=== PATIENT | female | born 1980 | race African-American/Black ===

== ENCOUNTER 2017-01-28 08:32 | Emergency (ER) | payer SELFPAY ==
[2017-01-28 08:38] VITALS: BP 129/82
[2017-01-28] MEDS ORDERED: AMOXICILLIN TRIHYDRATE 500 MG CAPSULE PO ONE (08:57)
--- NOTE | 2017-01-28 08:59 | ER Document Report ---
ED Headache - General Chief Complaint: Headache >24 hrs old Stated Complaint: HEADACHE Time Seen by Provider: 01/28/17 08:55 Mode of Arrival: Ambulatory Information source: Patient Notes: Patient is a 36-year-old female who presents to the ER today for 2 weeks of headache behind the right eye and in the forehead, generalized ill feeling, malaise, sweats and chills and productive cough, worse at night. She denies any history of asthma, she denies shortness of breath, wheezing, nausea, vomiting, diarrhea, abdominal pain, chest pain. She denies any sore throat or runny nose. She does have a history of migraines and takes Excedrin which usually works but states that this headache "does not feel like a migraine." She states that the pain in her head feels more like a "pressure," and is located mostly in her face. TRAVEL OUTSIDE OF THE [place] IN LAST 30 DAYS: No - Related Data Allergies/Adverse Reactions: No Known Allergies Allergy (Verified 01/28/17 08:35) Past Medical History - General Information source: Patient - Social History Smoking Status: Current Some Day Smoker Family History: Reviewed & Not Pertinent, DM Patient has suicidal ideation: No Patient has homicidal ideation: No - Past Medical History Cardiac Medical History: Reports: Hx Pulmonary Embolism Denies: Hx Heart Attack, Hx Hypertension Pulmonary Medical History: Denies: Hx Asthma, Hx Tuberculosis Neurological Medical History: Reports: Hx Migraine. Denies: Hx Cerebrovascular Accident, Hx Seizures Renal/ Medical History: Denies: Hx Peritoneal Dialysis GI Medical History: Reports: Hx Gastroesophageal Reflux Disease - w , Hx Irritable Bowel. Denies: Hx Hepatitis, Hx Hiatal Hernia, Hx Ulcer Infectious Medical History: Denies: Hx Hepatitis Past Surgical History: Reports: Hx Cholecystectomy, Hx Tubal Ligation. Denies: Hx Hysterectomy, Hx Mastectomy - TUBAL LIGATION, Hx Open Heart Surgery, Hx Pacemaker - Immunizations Hx Diphtheria, Pertussis, Tetanus Vaccination: No Review of Systems - Review of Systems Constitutional: See HPI EENT: See HPI Cardiovascular: No symptoms reported Respiratory: See HPI Gastrointestinal: No symptoms reported Genitourinary: No symptoms reported Female Genitourinary: No symptoms reported Musculoskeletal: No symptoms reported Skin: No symptoms reported Hematologic/Lymphatic: No symptoms reported Neurological/Psychological: See HPI Physical Exam - Vital signs Vitals: Temp Pulse Resp BP Pulse Ox 98.0 F 84 14 129/82 H 98 01/28/17 08:36 01/28/17 08:36 01/28/17 08:36 01/28/17 08:36 01/28/17 08:36 - Notes Notes: PHYSICAL EXAMINATION: GENERAL: mildly Ill-appearing, but in no acute distress. HEAD: Atraumatic, normocephalic. EYES: Pupils equal round and reactive to light, extraocular movements intact, sclera anicteric, conjunctiva are normal. ENT: ear canals without erythema or foreign body, TMs pearly morgan with good bony landmarks, nares patent, oropharynx clear without exudates. Moist mucous membranes. Maxillary and frontal sinuses tender to palpation, NECK: Normal range of motion, supple without lymphadenopathy LUNGS: CTAB and equal. No wheezes rales or rhonchi. HEART: Regular rate and rhythm without murmurs EXTREMITIES: Normal range of motion, no pitting edema. No cyanosis. NEUROLOGICAL: Cranial nerves grossly intact. Normal sensory/motor exams. PSYCH: Normal mood, normal affect. SKIN: Warm, Dry, normal turgor, no rashes or lesions noted Course - Vital Signs Vital signs: Temp Pulse Resp BP Pulse Ox 98.0 F 84 12 129/82 H 98 01/28/17 08:36 01/28/17 08:36 01/28/17 08:54 01/28/17 08:36 01/28/17 08:36 Discharge - Discharge Clinical Impression: Sinusitis Qualifiers: Sinusitis location: unspecified location Chronicity: acute Recurrence: non- recurrent Qualified Code(s): J01.90 - Acute sinusitis, unspecified Headache Qualifiers: Headache type: unspecified Headache chronicity pattern: unspecified pattern Intractability: not intractable Qualified Code(s): R51 - Headache Condition: Stable Disposition: HOME, SELF-CARE Additional Instructions: Return immediately for any new or worsening symptoms. Follow up with primary care provider, call tomorrow to make followup appointment. Prescriptions: Amoxicillin 500 mg PO BID #20 capsule Ibuprofen [Motrin 800 mg Tablet] 800 mg PO Q8H PRN #30 tab PRN Reason: Referrals: JOSELITO NUNEZ MD [Primary Care Provider] - Follow up as needed
== END 2017-01-28 09:13 | disposition home or self-care (01) ==
LOC: ER 08:32
DX: J01.90 Acute sinusitis, unspecified (principal); R51 Headache; R53.81 Other malaise; R61 Generalized hyperhidrosis; R68.83 Chills (without fever); R05 Cough; F17.200 Nicotine dependence, unspecified, uncomplicated
CPT/HCPCS: 99283

== ENCOUNTER → 2017-03-27 | Outpatient (CLI) | payer OTHER ==
--- NOTE | 2017-03-27 14:00 | XCELERA REPORT ---
[address] [address] Lower Extremity Venous Evaluation Name: ANA SNOW Age: 36 yrs Gender: Female : 1980 Patient Status: Outpatient Patient Location: Study Date: 03/27/2017 10:06 AM Procedure: Color flow and duplex imaging of the veins of the left lower extremity as well as the right Common Femoral vein. Reason For Study: E M79.605 Ordering Physician: MORIAH BLANCO Performed By: Lcai David Right Sided Venous Evaluation The right common femoral vein is fully compressible. Spontaneous and phasic flow is present in the right common femoral vein. Left Sided Venous Evaluation Normal vessel filling wall to wall, compression and augmentation as well as Colour flow down to the infrageniculate veins. Interpretation Summary No duplex evidence of DVT or obstruction in the left lower extremity nor in the right Common Femoral vein. : MORIAH BLANCO > Chavo Granados
== END ==
LOC: SP 09:56
PROVIDERS: ATTEND Family Medicine
DX: M79.605 Pain in left leg (principal)
CPT/HCPCS: 93971

== ENCOUNTER 2017-04-05 22:05 | Emergency (ER) | payer OTHER ==
[2017-04-05 23:14] LABS: ABSOLUTE BASOPHILS # (AUTO) 0.1 10^3/uL (0.0-0.2); ABSOLUTE EOSINOPHILS # (AUTO) 0.5 10^3/uL (0.0-0.6); ABSOLUTE MONOCYTES (AUTO) 0.4 10^3/uL (0.1-1.4); ABSOLUTE NEUT (AUTO) 3.9 10^3/uL (1.7-8.2); EOSINOPHILS % (AUTO) 5.1 % (0-6); HEMATOCRIT 35.1 % (36.0-47.0); HEMOGLOBIN 11.9 g/dL (12.0-15.5); HGB HCT DIFFERENCE 0.6; LYMPHOCYTES % (AUTO) 45.1 % (13-45); MEAN CORPUSCULAR HEMOGLOBIN 29.5 pg (27.0-33.4); MEAN CORPUSCULAR VOLUME 87 fl (80-97); MONOCYTES % (AUTO) 4.7 % (3-13); RED BLOOD COUNT 4.05 10^6/uL (3.72-5.28); RED CELL DISTRIBUTION WIDTH 15.3 % (11.5-14.0); SEGMENTED NEUTROPHILS % (AUTO) 44.1 % (42-78); WHITE BLOOD COUNT 8.9 10^3/uL (4.0-10.5)
[2017-04-05 23:26] LABS: ALANINE AMINOTRANSFERASE 33 U/L (9-52); ALKALINE PHOSPHATASE 43 U/L (38-126); ANION GAP 10 (5-19); ASPARTATE AMINO TRANSFERASE 20 U/L (14-36); BILIRUBIN,DIRECT 0.3 mg/dL (0.0-0.4); BILIRUBIN,TOTAL 0.4 mg/dL (0.2-1.3); BLOOD UREA NITROGEN 13 mg/dL (7-20); CALCIUM 9.4 mg/dL (8.4-10.2); CARBON DIOXIDE 25 mmol/L (22-30); CHLORIDE 107 mmol/L (98-107); CREATINE KINASE 119 U/L (30-135); CREATININE RESULT 0.78 mg/dL (0.52-1.25); GLUCOSE 108 mg/dL (75-110); POTASSIUM 4.5 mmol/L (3.6-5.0); SODIUM 141.6 mmol/L (137-145); TOTAL PROTEIN 7.2 g/dL (6.3-8.2)
--- NOTE | 2017-04-05 23:33 | RADIOLOGY REPORT (SQ) ---
EXAM DESCRIPTION: CHEST PA/LAT COMPLETED DATE/TIME: 04/05/2017 11:25 pm REASON FOR STUDY: chest pain, hx PE COMPARISON: 12/01/2015 EXAM PARAMETERS: NUMBER OF VIEWS: two views TECHNIQUE: Digital Frontal and Lateral radiographic views of the chest acquired. RADIATION DOSE: NA LIMITATIONS: none FINDINGS: LUNGS AND PLEURA: No opacities, masses or pneumothorax. No pleural effusion. MEDIASTINUM AND HILAR STRUCTURES: No masses or contour abnormalities. HEART AND VASCULAR STRUCTURES: Heart normal size. No evidence for failure. BONES: No acute findings. HARDWARE: Status post cholecystectomy. OTHER: No other significant finding. IMPRESSION: NO SIGNIFICANT RADIOGRAPHIC FINDING IN THE CHEST. TECHNICAL DOCUMENTATION: JOB ID: [id number] [employer]- All Rights Reserved
[2017-04-05 23:41] LABS: CREATINE KINASE MB < 0.22 ng/mL (<4.55); TROPONIN I < 0.012 ng/mL
--- NOTE | 2017-04-05 23:55 | ER Document Report ---
ED Cardiac - General Chief Complaint: Chest Pain Stated Complaint: CHEST PAIN Time Seen by Provider: 04/05/17 23:38 Notes: Patient is a 36 year old female that comes to the ED for chief complaint of chest pain in the left side of her chest that started at at about 7 pm today. She reports it is constant, worse with a deep breath. She denies specifically feeling shortness of breath. She states that for the past 3 weeks she has had swelling in her left leg that has not resolved, she did have a Doppler ultrasound on a by primary care provider which was negative but she also has a history of PE in the past that she used to take a blood thinner for her. She does not smoke, she denies oral contraceptive, she denies recent travel or surgery. She denies injury, pain with movement, cough, fever, nausea/vomiting, abdominal pain, flank pain. TRAVEL OUTSIDE OF THE [place] IN LAST 30 DAYS: No - Related Data Allergies/Adverse Reactions: No Known Allergies Allergy (Verified 04/05/17 22:20) Past Medical History - General Information source: Patient - Social History Smoking Status: Never Smoker Frequency of alcohol use: None Drug Abuse: None Lives with: Family Family History: Reviewed & Not Pertinent, DM - Past Medical History Cardiac Medical History: Reports: Hx Pulmonary Embolism Denies: Hx Heart Attack, Hx Hypertension Pulmonary Medical History: Denies: Hx Asthma, Hx Tuberculosis Neurological Medical History: Reports: Hx Migraine. Denies: Hx Cerebrovascular Accident, Hx Seizures Renal/ Medical History: Denies: Hx Peritoneal Dialysis GI Medical History: Reports: Hx Gastroesophageal Reflux Disease - w , Hx Irritable Bowel. Denies: Hx Hepatitis, Hx Hiatal Hernia, Hx Ulcer Infectious Medical History: Denies: Hx Hepatitis Past Surgical History: Reports: Hx Cholecystectomy, Hx Tubal Ligation. Denies: Hx Hysterectomy, Hx Mastectomy - TUBAL LIGATION, Hx Open Heart Surgery, Hx Pacemaker - Immunizations Hx Diphtheria, Pertussis, Tetanus Vaccination: No Review of Systems - Review of Systems Constitutional: No symptoms reported EENT: No symptoms reported Cardiovascular: See HPI Respiratory: See HPI Gastrointestinal: No symptoms reported Genitourinary: No symptoms reported Female Genitourinary: No symptoms reported Musculoskeletal: No symptoms reported Skin: No symptoms reported Hematologic/Lymphatic: No symptoms reported Neurological/Psychological: No symptoms reported Physical Exam - Vital signs Vitals: Temp Pulse Resp BP Pulse Ox 98.2 F 79 16 127/81 H 100 04/05/17 22:24 04/05/17 22:24 04/05/17 22:24 04/05/17 22:24 04/05/17 22:24 Interpretation: Normal - General General appearance: Appears well, Alert In distress: None - HEENT Head: Normocephalic, Atraumatic Eyes: Normal Pupils: PERRL - Respiratory Respiratory status: No respiratory distress Chest status: Tender - Tender over the anterior chest wall at about the third and fourth rib spaces bilaterally, mild, no crepitus, erythema, swelling, deformity Breath sounds: Normal. No: Decreased air movement, Wheezing Chest palpation: Normal - Cardiovascular Rhythm: Regular. No: Tachycardia Heart sounds: Normal auscultation, S1 appreciated, S2 appreciated Murmur: No - Abdominal Inspection: Normal Distension: No distension Bowel sounds: Normal Tenderness: Nontender Organomegaly: No organomegaly - Back Back: Normal, Nontender - Extremities General upper extremity: Normal inspection, Nontender, Normal color, Normal ROM , Normal temperature General lower extremity: Normal inspection, Nontender, Normal color, Normal ROM , Normal temperature, Normal weight bearing. No: Villa's sign - Neurological Neuro grossly intact: Yes Cognition: Normal Orientation: AAOx4 Amanda Coma Scale Eye Opening: Spontaneous Jasper Coma Scale Verbal: Oriented Amanda Coma Scale Motor: Obeys Commands Jasper Coma Scale Total: 15 Speech: Normal Motor strength normal: LUE, RUE, LLE, RLE Sensory: Normal - Psychological Associated symptoms: Normal affect, Normal mood - Skin Skin Temperature: Warm Skin Moisture: Dry Skin Color: Normal Course - Re-evaluation Re-evalutation: CBC, chemistry, cardiac enzymes, EKG, chest x-ray all unremarkable. D-dimer is nonspecific but not elevated. Patient does have some lower extremity swelling in her left leg compared to the right which is subtle but definitely present. Patient has pain with palpation over the chest wall on both sides of the anterior chest wall which is mild but specific and reproducible. Discussed with patient. She is declining any medications at this time including aspirin. I discussed workup, because of negative Doppler, not elevated d-dimer, no tachycardia, no shortness of breath, chest wall pain on examination, and patient no longer being on oral contraceptive like she was when she had the previous pulmonary embolism I did offer to not perform the CAT scan, to symptomatically treat and have follow-up/return precautions. After discussion patient requested CAT scan to be performed, states she cannot rest without it and she came specifically for the CAT scan. After a discussion this was performed because of left lower extremity swelling, chest pain, and history of pulmonary embolism. CAT scan shows no acute abnormality. I provided the patient with a copy of the report, she is very satisfied with this. Patient declines any treatment/ management for her chest wall symptoms, she states she actually feels much improved now compared to when her symptoms started, she will use over-the- counter and supportive therapies at home. I discussed follow-up and return precautions, patient states understanding and agreement. - Vital Signs Vital signs: Temp Pulse Resp BP Pulse Ox 98.2 F 79 14 133/98 H 100 04/05/17 22:24 04/05/17 22:24 04/06/17 01:00 04/05/17 23:46 04/06/17 01:00 - Laboratory Result Diagrams: 04/05/17 22:55 04/05/17 22:55 Laboratory results interpreted by me: 04/05/17 22:55 Hgb 11.9 L Hct 35.1 L RDW 15.3 H Lymphocytes % 45.1 H Discharge - Discharge Clinical Impression: Chest wall pain Chest pain Qualifiers: Chest pain type: unspecified Qualified Code(s): R07.9 - Chest pain, unspecified Condition: Stable Disposition: HOME, SELF-CARE Additional Instructions: Your workup does not indicate any concerning abnormality. Symptoms are most likely related to her chest wall, I recommend placing heat on the area, avoid lifting/twisting, take [id number] anti-inflammatory. Follow-up with your primary care provider. Return to the emergency department for any concerning or worsening symptoms including severe pain, difficulty breathing, or any other concerning symptoms.
[2017-04-06 00:58] LABS: APPEARANCE,URINE CLEAR; BILIRUBIN,URINE NEGATIVE (NEGATIVE); GLUCOSE, URINE NEGATIVE (NEGATIVE); KETONES,URINE NEGATIVE (NEGATIVE); LEUKOCYTE ESTERASE,URINE NEGATIVE (NEGATIVE); NITRITE,URINE NEGATIVE (NEGATIVE); PROTEIN,URINE NEGATIVE (NEGATIVE); URINE SPECIFIC GRAVITY 1.034; UROBILINOGEN,URINE NEGATIVE mg/dL (<2.0)
--- NOTE | 2017-04-06 01:15 | RADIOLOGY REPORT (SQ) ---
EXAM: CT ANGIOGRAM OF THE CHEST USING INTRAVENOUS ADMINISTRATION OF NONIONIC IODINATED CONTRAST MATERIAL. CLINICAL INDICATION: Acute chest pain. Left leg swelling. History of remote pulmonary embolism. COMPARISON: None. TECHNIQUE: Using helical technique, thin section axial images were performed through the chest after the uncomplicated intravenous administration of nonionic iodinated contrast material. Axially acquired data was then transferred to a dedicated CT workstation to facilitate parasagittal, coronal and volumetric 3-D reconstructions. Advertising Space Clerk volumetric 3-D reconstructions for this examination were permanently stored on the PACS system. Creatinine is 0.78. BUN 13. FINDINGS: Right vessels the chest are normal. No pulmonary embolism. No suspicious hilar or mediastinal lymphadenopathy. Cardiac size and contour is normal. Probable bibasilar atelectasis. Lungs are otherwise clear. No pleural effusions. Bones are normal. IMPRESSION: No pulmonary embolism.
[2017-04-06 01:48] VITALS: BP 133/98
[2017-04-06] MEDS ORDERED: ONDANSETRON HCL INJ/PF 4 MG/2 ML SDV IV ONE (01:58)
--- NOTE | 2017-04-07 06:24 | EKG REPORT ---
SEVERITY:- NORMAL ECG - SINUS RHYTHM : Confirmed by: Sharon Khalil MD 07-Apr-2017 06:23:23
== END 2017-04-06 02:16 | disposition home or self-care (01) ==
LOC: ER 22:05
DX: R07.9 Chest pain, unspecified (principal); R07.89 Other chest pain
CPT/HCPCS: 93005; 99285; 96374; 36415; 82553; 82550; 85025; 81025; 80053; 81001; 84484; 85379; 71020; 71275; 93010; J2405

== ENCOUNTER 2017-08-28 08:02 | Emergency (ER) | payer OTHER ==
--- NOTE | 2017-08-28 09:31 | ER Document Report ---
ED General - General Chief Complaint: Leg Pain Stated Complaint: LEG PAIN/NUMBNESS Time Seen by Provider: 08/28/17 08:47 Mode of Arrival: Ambulatory Information source: Patient TRAVEL OUTSIDE OF THE [place] IN LAST 30 DAYS: No - HPI Patient complains to provider of: left leg pain Onset: Other - on and off for one year Quality of pain: Sharp Severity: Mild Pain Level: 2 Associated symptoms: None - Months Similar symptoms previously: Yes Recently seen / treated by doctor: Yes Notes: Patient states that she has pain in her left hip and groin area. She states the pain radiates down her thigh and into her inner calf area. She denies any trauma states that this discomfort started approximately 1 year ago. She states that she gets left lower extremity swelling at least 3 times a week which usually worsens throughout the day. The pain does not wake her up from sleep however when she wakes up in the morning she does have some discomfort. She is an junior assistant manager to a chiropractor. Had x-rays of her hip which she states works were negative as well as an ultrasound 3 months ago which was also negative. Patient denies any low back pain. - Related Data Allergies/Adverse Reactions: No Known Allergies Allergy (Verified 08/28/17 08:04) Past Medical History - General Information source: Patient, Relative - Social History Smoking Status: Never Smoker Cigarette use (# per day): No Chew tobacco use (# tins/day): No Smoking Education Provided: No Frequency of alcohol use: Occasional Drug Abuse: None Lives with: Family Family History: Reviewed & Not Pertinent, DM Patient has suicidal ideation: No Patient has homicidal ideation: No - Past Medical History Cardiac Medical History: Reports: Hx Pulmonary Embolism Denies: Hx Heart Attack, Hx Hypertension Pulmonary Medical History: Denies: Hx Asthma, Hx Tuberculosis Neurological Medical History: Reports: Hx Migraine. Denies: Hx Cerebrovascular Accident, Hx Seizures Endocrine Medical History: Reports: None Renal/ Medical History: Reports: None. Denies: Hx Peritoneal Dialysis Malignancy Medical History: Reports: None GI Medical History: Reports: Hx Gastroesophageal Reflux Disease - w , Hx Irritable Bowel. Denies: Hx Hepatitis, Hx Hiatal Hernia, Hx Ulcer Psychiatric Medical History: Reports: None Traumatic Medical History: Reports: None Infectious Medical History: Reports: None. Denies: Hx Hepatitis Past Surgical History: Reports: Hx Cholecystectomy, Hx Tonsillectomy, Hx Tubal Ligation. Denies: Hx Hysterectomy, Hx Mastectomy - TUBAL LIGATION, Hx Open Heart Surgery, Hx Pacemaker - Immunizations Hx Diphtheria, Pertussis, Tetanus Vaccination: No Review of Systems - Review of Systems Constitutional: No symptoms reported EENT: No symptoms reported Cardiovascular: No symptoms reported Respiratory: No symptoms reported Gastrointestinal: No symptoms reported Genitourinary: No symptoms reported Female Genitourinary: No symptoms reported Musculoskeletal: See HPI, Joint pain, Leg swelling - In the past but none today.. denies: Back pain, Joint swelling, Muscle pain, Muscle stiffness, Neck pain, Deformity, Ankle swelling Skin: No symptoms reported Hematologic/Lymphatic: No symptoms reported Neurological/Psychological: No symptoms reported Physical Exam - Vital signs Vitals: Temp Pulse Resp BP Pulse Ox 98.6 F 79 19 126/77 H 98 08/28/17 08:06 08/28/17 08:06 08/28/17 08:06 08/28/17 08:06 08/28/17 08:06 - Notes Notes: PHYSICAL EXAMINATION: GENERAL: Well-appearing, well-nourished and in no acute distress. HEAD: Atraumatic, normocephalic. EYES: Pupils equal round and reactive to light, extraocular movements intact, conjunctiva are normal. ENT: Nares patent, oropharynx clear without exudates. Moist mucous membranes. NECK: Normal range of motion, supple without lymphadenopathy LUNGS: Breath sounds clear to auscultation bilaterally and equal. No wheezes rales or rhonchi. HEART: Regular rate and rhythm without murmurs ABDOMEN: Soft, nontender, nondistended abdomen. No guarding, no rebound. No masses appreciated. Female : deferred Musculoskeletal: Patient has no low back pain with palpation. She has full range of motion both passive and active with mild left hip pain. No swelling of her left lower extremity. Patient's left lower extremity is neurovascularly intact. There is no ankle or knee deformity or tenderness. NEUROLOGICAL: Cranial nerves grossly intact. Normal speech, normal gait. Normal sensory, motor exams PSYCH: Normal mood, normal affect. SKIN: Warm, Dry, normal turgor, no rashes or lesions noted. Course - Re-evaluation Re-evalutation: 08/28/17 09:31 Discussed with the patient that I would repeat her ultrasound just to make sure she does not have a DVT. I then told her that x-rays since they were already done would not be of value. I did state to have her follow-up the primary medical doctor to possibly have an MRI of her left hip to see what is going on as this pain has been present intermittently for 1 year. 08/28/17 12:45 communications tower technician Fatou stated DVT negative. 08/28/17 12:46 - Vital Signs Vital signs: Temp Pulse Resp BP Pulse Ox 97.9 F 74 16 123/81 99 08/28/17 13:31 08/28/17 13:31 08/28/17 13:31 08/28/17 13:31 08/28/17 13:31 Discharge - Discharge Clinical Impression: Leg pain Condition: Stable Disposition: HOME, SELF-CARE Instructions: Leg Pain Nonspecific ([facility]) Additional Instructions: Follow up with your physician tomorrow for further care or return to the ED IMMEDIATELY if symptoms worsen or new concerns occur. If you cannot afford to follow up with your primary care physician a list of low cost clinics have been provided at the end of your discharge papers as well. Referrals: STACIE BLANCO MD [Primary Care Provider] - Follow up in 3-5 days
--- NOTE | 2017-08-28 12:42 | RADIOLOGY REPORT (SQ) ---
EXAM DESCRIPTION: VENOUS UNILATERAL LOWER COMPLETED DATE/TIME: 08/28/2017 12:34 pm REASON FOR STUDY: left lower extremity pain/swelling COMPARISON: None. TECHNIQUE: Dynamic and static ambrocio scale and color images acquired of the left leg venous system. Se lected spectral images acquired with additional compression and augmentation maneuvers. The contralat eral common femoral vein and saphenofemoral junction were also imaged. Images stored on PACS. LIMITATIONS: None. FINDINGS: COMMON FEMORAL: Normal phasicity, compression and augmentation. No visualized echogenic ma terial on ambrocio scale. No defects on color images. FEMORAL: Normal compression and augmentation. No visualized echogenic material on ambrocio scale. No defe cts on color images. POPLITEAL: Normal compression, augmentation. No visualized echogenic material on ambrocio scale. No defec ts on color images. CALF VESSELS: Normal compression, augmentation. No visualized echogenic material on ambrocio scale. No de fects on color images. GSV and SSV: Normal compression, augmentation. No visualized echogenic material on ambrocio scale. No def ects on color images. ANY DEEP VENOUS INSUFFICIENCY: Not evaluated. ANY EVIDENCE OF POPLITEAL CYST: No. OTHER: No other significant finding. CONTRALATERAL COMMON FEMORAL VEIN AND SAPHENOFEMORAL JUNCTION: Normal phasicity, compression and augmentation. No visualized echogenic material on ambrocio scale. No de fects on color images. IMPRESSION: NO EVIDENCE DVT OR SVT IN THE LEFT LEG. TECHNICAL DOCUMENTATION: JOB ID: [id number] [employer]- All Rights Reserved Reading location - IP/workstation name: [email or web address]
[2017-08-28 13:33] VITALS: BP 123/81
== END 2017-08-28 13:33 | disposition home or self-care (01) ==
LOC: ER 08:02
DX: M79.605 Pain in left leg (principal); M79.89 Other specified soft tissue disorders; Z86.711 Personal history of pulmonary embolism; Z90.49 Acquired absence of other specified parts of digestive tract; Z98.51 Tubal ligation status
CPT/HCPCS: 93971; 99283

== ENCOUNTER 2017-10-15 10:15 | Emergency (ER) | payer OTHER ==
[2017-10-15 10:30] VITALS: BP 124/82
--- NOTE | 2017-10-15 10:48 | ER Document Report ---
ED Extremity Problem, Lower - General Chief Complaint: Leg Pain Stated Complaint: LEG PAIN Time Seen by Provider: 10/15/17 10:34 Mode of Arrival: Ambulatory Information source: Patient Notes: 36-year-old female presented ED for complaint of leg pain that is getting worse. She states she has had the leg pain for over a year. She states she has had clots in her legs in the past but has had a recent venous Doppler that was negative. She states she thinks she might of turned around the other day but is able to bear weight and walks with a even steady gait. She denies any shortness of breath or swelling to the legs. TRAVEL OUTSIDE OF THE [place] IN LAST 30 DAYS: No - HPI Patient complains to provider of: Pain. No: Injury, Swelling Location: Leg Occurred: Other - Over a year Quality of pain: Achy, Cramping Severity: Moderate Pain Level: 4 Context: Other - States she might have slipped Recent injury: No Associated symptoms: Painful ambulation Exacerbated by: Walking Relieved by: Nothing - Related Data Allergies/Adverse Reactions: No Known Allergies Allergy (Verified 10/15/17 10:24) Past Medical History - General Information source: Patient - Social History Smoking Status: Never Smoker Cigarette use (# per day): No Chew tobacco use (# tins/day): No Smoking Education Provided: No Frequency of alcohol use: Occasional Drug Abuse: None Occupation: Chiropractor's office Lives with: Alone - kids Family History: DM. denies: Arthritis, CAD, COPD, CVA, Hyperlipidemia, Hypertension, Malignancy, Thyroid Disfunction Patient has suicidal ideation: No Patient has homicidal ideation: No - Past Medical History Cardiac Medical History: Reports: Hx DVT, Hx Pulmonary Embolism Pulmonary Medical History: Reports: None EENT Medical History: Reports: None Neurological Medical History: Reports: Hx Migraine Endocrine Medical History: Reports: None Renal/ Medical History: Reports: None Malignancy Medical History: Reports: None GI Medical History: Reports: Hx Gastroesophageal Reflux Disease - w , Hx Irritable Bowel Musculoskeltal Medical History: Reports Other - Left leg pain Skin Medical History: Reports None Psychiatric Medical History: Reports: None Traumatic Medical History: Reports: None Infectious Medical History: Reports: None Past Surgical History: Reports: Hx Cholecystectomy, Hx Tonsillectomy, Hx Tubal LigationComment Only: Hx Mastectomy - TUBAL LIGATION - Immunizations Hx Diphtheria, Pertussis, Tetanus Vaccination: No Review of Systems - Review of Systems Constitutional: No symptoms reported EENT: No symptoms reported Cardiovascular: No symptoms reported Respiratory: No symptoms reported Gastrointestinal: No symptoms reported Genitourinary: No symptoms reported Female Genitourinary: No symptoms reported Musculoskeletal: Other - Left leg pain Skin: No symptoms reported Hematologic/Lymphatic: No symptoms reported Neurological/Psychological: No symptoms reported -: Yes All other systems reviewed and negative Physical Exam - Vital signs Vitals: Temp Pulse Resp BP Pulse Ox 98.0 F 87 15 124/82 96 10/15/17 10:10/15/17 10:10/15/17 10:10/15/17 10:10/15/17 10:26 Interpretation: Normal - General General appearance: Appears well, Alert - HEENT Head: Normocephalic, Atraumatic Eyes: Normal Pupils: PERRL - Respiratory Respiratory status: No respiratory distress Chest status: Nontender Breath sounds: Normal Chest palpation: Normal - Cardiovascular Rhythm: Regular Heart sounds: Normal auscultation Murmur: No - Abdominal Inspection: Normal Distension: No distension Bowel sounds: Normal Tenderness: Nontender Organomegaly: No organomegaly - Back Back: Normal, Nontender - Extremities General upper extremity: Normal inspection, Nontender, Normal color, Normal ROM , Normal temperature General lower extremity: Normal inspection, Normal color, Normal ROM, Normal temperature, Normal weight bearing. No: Villa's sign Thigh: Normal, Nontender Knee: Normal, Nontender Calf: Tender Ankle: Tender Foot: Tender - Neurological Neuro grossly intact: Yes Cognition: Normal Orientation: AAOx4 Vale Coma Scale Eye Opening: Spontaneous Vale Coma Scale Verbal: Oriented Vale Coma Scale Motor: Obeys Commands Amanda Coma Scale Total: 15 Speech: Normal Motor strength normal: LUE, RUE, LLE, RLE Sensory: Normal - Psychological Associated symptoms: Normal affect, Normal mood - Skin Skin Temperature: Warm Skin Moisture: Dry Skin Color: Normal Course - Vital Signs Vital signs: Temp Pulse Resp BP Pulse Ox 98.0 F 87 15 124/82 96 10/15/17 10:10/15/17 10:10/15/17 10:10/15/17 10:10/15/17 10:26 Discharge - Discharge Clinical Impression: Leg pain, left Condition: Stable Disposition: HOME, SELF-CARE Instructions: Use of [id number] Ibuprofen ([facility]) Additional Instructions: Leg Pain, Nonspecific We did not find an obvious cause for your leg pain. There's no sign of blood clot, infection, or other serious disease. Possible causes of vague leg pain include muscle or joint inflammation, disc disease in the lower back, pressure on the nerves in the back, or reduced blood flow through the arteries of the leg. Rest the leg. Pain can be eased with an antiinflammatory pain medicine such as ibuprofen. If the pain involves a small area, a heating pad might help. Call the doctor or return if the leg becomes swollen, weak, discolored, or increasingly painful, or if you develop any other significant change in your health. USE OF TYLENOL (ACETAMINOPHEN): Acetaminophen may be taken for pain relief or fever control. It's much safer than aspirin, offering a wider range of "safe" dosages. It is safe during . Some brand names are Tylenol, Panadol, Datril, Anacin 3, Tempra, and Liquiprin. Acetaminophen can be repeated every four hours. The following are maximum recommended dosages: WEIGHT Dose Drops Elixir Chewable( 80mg) (LBS.) drprs=droppers tsp=teaspoon 6 40 mg 0.4 ml (1/2) 6-11 80 mg 0.8 ml (full) tsp 1 tab 12-16 120 mg 1 1/2 drprs 3/4 tsp 1 1/2 tabs 17-23 160 mg 2 drprs 1 tsp 2 tabs 24-30 240 mg 3 drprs 1 1/2 tsp 3 tabs 30-35 320 mg 2 tsp 4 tabs 36-41 360 mg 2 1/4 tsp 4 1/2 tabs 42-47 400 mg 2 1/2 tsp 5 tabs 48-53 480 mg 3 tsp 6 tabs 54-59 520 mg 3 1/4 tsp 6 1/2 tabs 60-64 560 mg 3 1/2 tsp 7 tabs 65-70 600 mg 3 3/4 tsp 7 1/2 tabs 71-76 640 mg 4 tsp 8 tabs 77-82 720 mg 4 1/2 tsp 9 tabs 83-88 800 mg 5 tsp 10 tabs >89 pounds or adults 650 mg to 900 mg Acetaminophen can be repeated every four hours. Maximum dose not to exceed 4000 mg a day. These maximum recommended dosages are slightly higher than the dosages written on the product container, but these dosages are very safe and below the toxic dosage for acetaminophen. ICE PACKS: Apply ice packs frequently against the painful area. Many different schedules are recommended, such as "20 minutes on, 20 minutes off" or "one hour ice, two hours rest." If you need to work, you may need to go longer between ice treatments. You should plan to have the area ice packed AT LEAST one fourth of the time. The ice should be applied over the wrap, tape, or splint, or over a layer of cloth -- not directly against the skin. Some ice bags have a built-in cloth and can be put directly on the skin. WARM PACKS: After approximately two days, apply gentle heat (such as a heating pad or hot water bottle) for about 20 to 30 minutes about every two hours -- at least four times daily. Warmth and elevation will help you make a more rapid recovery , and will ease the pain considerably. Do not use HOT heat, and never apply heat for longer than 30 minutes. The continuous heat can invisibly damage skin and muscles -- even when no burn is seen on the surface. Damaged muscles can make you MORE sore. FOLLOW-UP CARE: If you have been referred to a physician for follow-up care, call the physician s office for an appointment as you were instructed or within the next two days. If you experience worsening or a significant change in your symptoms, notify the physician immediately or return to the Emergency Department at any time for re-evaluation. Forms: Return to Work Referrals: [facility] [Provider Group] - Follow up as needed
== END 2017-10-15 11:04 | disposition home or self-care (01) ==
LOC: ER 10:15
DX: M79.605 Pain in left leg (principal)
CPT/HCPCS: 99283